=== PATIENT | male | born 1950 | race Caucasian/White ===

== ENCOUNTER 2019-02-19 13:21 | Day surgery (SDC) | payer MEDICARE, BC ==
[2019-02-19] MEDS ORDERED: LIDOCAINE 2% MDV (20MG/ML) 20ML VIAL IV ONE (13:22)
[2019-02-19] MEDS ORDERED: PROPOFOL 10 MG/ML VIAL IV ONE (13:22)
--- NOTE | 2019-02-20 12:50 | Operative Note ---
OPERATION: COLONOSCOPY with cold forceps and cold snare polypectomy. PREOPERATIVE DIAGNOSIS: Personal history of multiple tubular adenomas. POSTOPERATIVE DIAGNOSIS: Colon polyps and sigmoid diverticulosis. PROCEDURE: After informed consent was obtained from the patient, he was placed in the left lateral decubitus position in the endoscopy suite, sedated and monitored by the department of anesthesia. Digital rectal exam was unremarkable. A well-lubricated [id number] colonoscope was inserted into the rectum and advanced to the cecum. The cecum and cecal bulb revealed a 5-6 mm sessile polyp removed with a cold snare and retrieved. The remainder of the cecum was unremarkable. The ascending colon revealed a diminutive polyp removed with a cold forceps. The transverse colon was unrevealing. The descending colon revealed a 5 mm polyp removed with a cold snare. The sigmoid colon demonstrated scattered diverticula. There was a 3-4 mm sessile rectal polyp removed with a cold snare. J-turn views of the anorectum were unremarkable. The endoscope was straightened, the rectal ampulla deflated, and the endoscope was removed. It should be noted there were scattered diverticula in the sigmoid colon. No inflammation was noted. RECOMMENDATIONS: The patient should follow a high-fiber diet. He will require repeat colonoscopy in 3-5 years pending tissue histology. As always, thank you for allowing me to participate in the healthcare of your patients. RAMIRO
== END 2019-02-19 15:22 | disposition home or self-care (01) ==
LOC: HOP 13:21
PROVIDERS: ATTEND Internal Medicine Gastroenterology
DX: Z09 Encounter for follow-up examination after completed treatment for conditions other than malignant neoplasm (principal); Z86.010 Personal history of colon polyps; D12.2 Benign neoplasm of ascending colon; D12.0 Benign neoplasm of cecum; K63.5 Polyp of colon; K62.1 Rectal polyp; K57.30 Diverticulosis of large intestine without perforation or abscess without bleeding; I10 Essential (primary) hypertension; E78.00 Pure hypercholesterolemia, unspecified